=== PATIENT | female | born 1985 | race Caucasian/White ===

== ENCOUNTER 2016-12-27 20:17 | Emergency (ER) | payer OTHER | END 2016-12-27 22:48 | disposition home or self-care (01) | LOC: FER 20:17 | DX: S22.32XA Fracture of one rib, left side, initial encounter for closed fracture (principal); F41.9 Anxiety disorder, unspecified; J45.909 Unspecified asthma, uncomplicated; F17.210 Nicotine dependence, cigarettes, uncomplicated; Z88.5 Allergy status to narcotic agent; Z88.6 Allergy status to analgesic agent; Z79.899 Other long term (current) drug therapy | CPT/HCPCS: 71020; 71100; 94640; 94760 ==

== ENCOUNTER 2022-06-07 18:01 | Day surgery (SDCO) | payer OTHER ==
[~2022-06-07] VITALS: Ht 170.2 cm; Wt 92.8 kg
[~2022-06-07 18:01] MED LIST: ATARAX25 MG PO; BENTYL10 MG PO; BUSPAR5 MG PO; NORCO 5-325 TA1 EACH PO; ZOFRAN4 MG PO
[2022-06-07 20:10] LABS: BASOPHIL 0.2 % (0-2); EOSINOPHIL 0.3 % (0-5); HCT 46.4 % (37.0-47.0); HGB 15.4 g/dl (12.5-16.0); LYMPHOCYTE 26.2 % (15-48); MCH 30.7 pg (25.0-31.0); MCHC 33.2 g/dL (32.0-36.0); MCV 92.6 fL (78.0-100.0); MONOCYTE 4.3 % (0-12); MPV 9.5 fL (6.0-9.5); NEUTROPHIL 68.6 % (41-80); NRBC 0; PLT 282 K/uL (150-400); RBC 5.01 M/uL (4.20-5.40); RDW 13.2 % (11.5-14.0)
[2022-06-07 20:48] LABS: ALBUMIN 3.8 g/dL (3.4-5.0); ALKALINE PHOSHATASE 123 U/L (46-116); ALT 34 U/L (14-59); AST 26 U/L (15-37); BILIRUBIN - TOTAL 0.3 mg/dL (0.2-1.0); BUN 15 mg/dL (7-18); BUN/CREAT RATIO (CALC) 18.8 RATIO; CHLORIDE 103 mmol/L (98-107); CO2 (BICARBONATE) 33 mmol/L (21-32); GLOBULIN (CALCULATION) 3.9 g/dL; GLUCOSE 95 mg/dL (74-106); POTASSIUM 3.9 mmol/L (3.5-5.1); TOTAL PROTEIN 7.7 g/dL (6.4-8.2)
[2022-06-07 21:02] LABS: CORONAVIRUS 2019 SARS-COV-2 NEGATIVE (NEGATIVE); INFLUENZA A NAA NEGATIVE (NEGATIVE)
[2022-06-08 07:25] LABS: BUN 10 mg/dL (7-18); BUN/CREAT RATIO (CALC) 15.2 RATIO; C-REACTIVE PROTEIN < 0.20 mg/dL (<=0.90); CHLORIDE 105 mmol/L (98-107); CO2 (BICARBONATE) 30 mmol/L (21-32); CREATININE 0.66 mg/dL (0.51-0.95); GLUCOSE 80 mg/dL (74-106); POTASSIUM 3.9 mmol/L (3.5-5.1)
[2022-06-09 05:48] LABS: HCT 36.6 % (37.0-47.0); MCH 30.4 pg (25.0-31.0); MCHC 32.8 g/dL (32.0-36.0); MCV 92.7 fL (78.0-100.0); MPV 9.7 fL (6.0-9.5); RBC 3.95 M/uL (4.20-5.40); RDW 13.2 % (11.5-14.0); WBC 11.9 K/uL (4.0-10.5)
[2022-06-09 06:12] LABS: ALBUMIN 2.8 g/dL (3.4-5.0); BILIRUBIN - TOTAL 0.3 mg/dL (0.2-1.0); BUN/CREAT RATIO (CALC) 19.4 RATIO; CREATININE 0.62 mg/dL (0.51-0.95); GLOBULIN (CALCULATION) 3.6 g/dL; POTASSIUM 3.9 mmol/L (3.5-5.1); TOTAL PROTEIN 6.4 g/dL (6.4-8.2)
[2022-06-09] MEDS ORDERED: AMOX TR-K200 MG/5 M PO (09:37)
[2022-06-09] MEDS ORDERED: PERCOCET 5-3251 EACH PO (09:37)
[2022-06-09] MEDS ORDERED: CULTURELLE1 EACH PO (09:42)
[2022-06-09] MEDS ORDERED: MIRALAX17 GM PO (09:42)
== END 2022-06-09 11:20 | disposition home or self-care (01) ==
LOC: FER 18:01 → FMS 23:18
PROVIDERS: Emergency Medicine; Internal Medicine; Nurse Practitioner Acute Care; ADMIT Internal Medicine
DX: K80.10 Calculus of gallbladder with chronic cholecystitis without obstruction (principal); J45.909 Unspecified asthma, uncomplicated; J20.9 Acute bronchitis, unspecified; J98.11 Atelectasis; K59.00 Constipation, unspecified; Z72.0 Tobacco use; Z20.822 Contact with and (suspected) exposure to COVID-19; Z88.6 Allergy status to analgesic agent
CPT/HCPCS: 36415; 71275; 80048; 80053; 84443; 84484; 84703; 85025; 85379; 86140; 93005; 94010; 94640; 94760; C9113; G0378; J1100; J1170; J1650; J1885; J2250; J2270; J2405; J2543; J2704; J3010; J7030; J7120; Q9967; U0002